=== PATIENT | male | born 1960 | race Caucasian/White ===

== ENCOUNTER 2020-06-13 16:48 | Emergency (ER) | payer OTHER ==
[~2020-06-13] VITALS: Ht 195.6 cm; Wt 100.7 kg
[2020-06-13] MEDS ORDERED: LOSARTAN-HCTZ1 EACH (17:09)
[2020-06-13] MEDS ORDERED: CEPHALEXIN500 MG PO (17:37)
[2020-06-13] MEDS ORDERED: DOXYCYCLINE HY100 MG PO (17:38)
[2020-06-13] MEDS ORDERED: NAPROSYN500 MG PO (17:39)
== END 2020-06-13 17:46 | disposition home or self-care (01) ==
LOC: FSED 17:40
DX: L03.113 Cellulitis of right upper limb (principal); M70.31 Other bursitis of elbow, right elbow; I10 Essential (primary) hypertension; M10.9 Gout, unspecified
CPT/HCPCS: 99283